=== PATIENT | female | born 1995 | race Hispanic/Latino ===

== ENCOUNTER 2017-06-20 09:17 | Emergency (ER) | payer OTHER ==
[2017-06-20 09:17] VITALS: BMI 38.7
[2017-06-20 09:42] VITALS: TEMP 98.1; O2SAT 97
[2017-06-20 10:19] LABS: URINE BILIRUBIN NEGATIVE (NEGATIVE); URINE BLOOD LARGE (NEGATIVE); URINE GLUCOSE (UA) NEGATIVE (NEGATIVE); URINE KETONE NEGATIVE (NEGATIVE); URINE LEUKOCYTE ESTERASE NEGATIVE Leu/uL (NEGATIVE); URINE PROTEIN TRACE mg/dL (<30 mg/dL); URINE UROBILINOGEN 0.2 E.U./dL (<1 E.U./dL)
[2017-06-20 10:20] LABS: URINE APPEARANCE SL CLOUDY (CLEAR); URINE COLOR YELLOW (YELLOW)
[2017-06-20] MEDS ORDERED: Albuterol-Ipratrop 3 mg / 0.5 (3 ml) UD IH STA ×2 (10:25)
[2017-06-20] MEDS ORDERED: Promethazine/Cod 6.25mg-10mg/5ml Syr UD PO STA (10:26)
[2017-06-20 10:28] LABS: URINE BACTERIA FEW (NEG); URINE EPITHELIAL CELLS 0 - 2 /hpf (0-5); URINE RBC TNTC /hpf (0-2); URINE WBC 0 - 2 /hpf (0-6)
--- NOTE | 2017-06-20 10:28 | ED PDOC ---
Arrival/HPI - General Chief Complaint: Back Pain Time Seen by Provider: 06/20/17 09:53 Historian: Patient - History of Present Illness Narrative History of Present Illness (Text): 06/20/17 22 yo female w/PMHx of asthma come in for evaluation of cold sx for past week associated with nasal congestion, dry cough that gradually worsen for past 3 days. Pt sts, " now feel pain on my side from coughing". Pt admits, using inhaler at home without improvement in cough. Otherwise, pt denies fever, chills , headache, dizziness, drooling, nack pain, CP, dyspnea, palpitation, abd. pain , N/V/D, back pain. Ambulate to ED for evaluation, not in any apparent distress. Past Medical History - Infectious Disease Hx of Infectious Diseases: None - Cardiac Hx Cardiac Disorders: No Other/Comment: ASTHMA. ANEMIA - Pulmonary Hx Respiratory Disorders: Yes Hx Asthma: Yes - Neurological Hx Neurological Disorder: No - HEENT Hx HEENT Disorder: No - Renal Hx Renal Disorder: No - Endocrine/Metabolic Hx Endocrine Disorders: No - Hematological/Oncological Hx Blood Disorders: Yes Hx Anemia: Yes - Integumentary Hx Dermatological Disorder: No - Musculoskeletal/Rheumatological Hx Musculoskeletal Disorders: No - Gastrointestinal Hx Gastrointestinal Disorders: No - Genitourinary/Gynecological Hx Genitourinary Disorders: No - Psychiatric Hx Psychophysiologic Disorder: No Hx Depression: No Hx Emotional Abuse: No Hx Physical Abuse: No Hx Substance Use: No - Past Surgical History Past Surgical History: No Previous - Anesthesia Hx Anesthesia: No Hx Anesthesia Reactions: No Hx Malignant Hyperthermia: No - Suicidal Assessment Feels Threatened In Home Enviroment: No Family/Social History - Physician Review Nursing Documentation Reviewed: Yes Family/Social History: No Known Family HX Smoking Status: Heavy Smoker > 10 Cigarettes Daily Hx Alcohol Use: Yes Hx Substance Use: No Hx Substance Use Treatment: No Allergies/Home Meds Allergies/Adverse Reactions: Allergies No Known Allergies Allergy (Verified 06/20/17 09:39) Home Medications: Home Meds Medication Instructions Recorded Confirmed Albuterol HFA [Ventolin HFA 90 2 puff IH PRN PRN 06/20/17 06/20/17 mcg/actuation (8 g)] Review of Systems - Review of Systems Constitutional: Normal. absent: Fevers Eyes: Normal ENT: Normal, Sinus Congestion Respiratory: Cough, Wheezing Cardiovascular: Normal Gastrointestinal: Normal Genitourinary Female: Normal Musculoskeletal: Normal Skin: Normal Neurological: Normal Endocrine: Normal Hemo/Lymphatic: Normal Psychiatric: Normal Physical Exam Vital Signs Temp Pulse Resp BP Pulse Ox 06/20/17 09:39 98.1 F 85 19 136/75 97 Temperature: Afebrile Blood Pressure: Normal Pulse: Regular Respiratory Rate: Normal Appearance: Positive for: Well-Appearing, Non-Toxic, Comfortable Pain Distress: None Mental Status: Positive for: Alert and Oriented X 3 - Systems Exam Conjunctiva: Present: Normal Ears: Present: NORMAL TM Mouth: Present: Moist Mucous Membranes. No: Drooling Pharnyx: No: ERYTHEMA, EXUDATE, TONSILS ENLARGED Nose (Internal): Present: Edematous Neck: Present: Trachea Midline. No: JVD, Lymphadenopathy, Bruit Respiratory/Chest: Present: Good Air Exchange, Wheezes (scattered Right base). No: Respiratory Distress, Accessory Muscle Use, Decreased Breath Sounds, Rales Cardiovascular: Present: Regular Rate and Rhythm, Normal S1, S2. No: Murmurs Abdomen: Present: Normal Bowel Sounds. No: Tenderness, Distention, Peritoneal Signs, Rebound, Guarding Back: Present: Other (mild tendernes over Right flank area. No deformity, no skin changes.). No: CVA Tenderness Upper Extremity: Present: Normal ROM. No: Deformity Lower Extremity: Present: Normal ROM. No: Edema, CALF TENDERNESS, Swelling, Deformity Neurological: Present: GCS=15, Speech Normal Skin: Present: Warm, Dry, Normal Color. No: Rashes Psychiatric: Present: Alert, Oriented x 3, Normal Insight, Normal Concentration Medical Decision Making ED Course and Treatment: 06/20/17 10:59 On re-evaluation, pt is afebrile, hemodynamicaly stable. Non-toxic. PEAk flow >400 pre and post tx PulseOx 97% RA ENT: no acute findings Neck: Supple, (-) JVD, (-) carotid bruits B/L Lungs: CTA B/L, BS equal B/L. CVS: (+)S1S2, reg. Abd: benign CXR review and appears normal Pt has clinical findings c/w bronchitis, asthma exacerbation. Pt advised on course of ds. ref. to F/u with PMD, Pulm in 2-3 days for re-evaluation. return to ED if any worsening or new changes. - Lab Interpretations Lab Results: Lab Results 06/20/17 10:15: Urine Color Yellow, Urine Appearance Sl cloudy, Urine pH 6.0, Ur Specific [place] 1.025, Urine Protein Trace H, Urine Glucose (UA) Negative, Urine Ketones Negative, Urine Blood Large H, Urine Nitrate Negative, Urine Bilirubin Negative, Urine Urobilinogen 0.2, Ur Leukocyte Esterase Negative, Urine RBC Tntc, Urine WBC 0 - 2, Ur Epithelial Cells 0 - 2, Urine Bacteria Few - RAD Interpretation Radiology Orders: 06/20/17 10:24 CHEST TWO VIEWS (PA/LAT) [RAD] Stat - Medication Orders Current Medication Orders: Discontinued Medications Albuterol/Ipratropium (Duoneb 3 Mg/0.5 Mg (3 Ml) Ud) 3 ml IH STAT STA Stop: 06/20/17 10:26 Last Admin: 06/20/17 10:37 Dose: 3 ml Albuterol/Ipratropium (Duoneb 3 Mg/0.5 Mg (3 Ml) Ud) 3 ml IH STAT STA Stop: 06/20/17 10:26 Azithromycin (Zithromax) 500 mg PO STAT STA PRN Reason: Protocol Stop: 06/20/17 10:27 Last Admin: 06/20/17 10:37 Dose: 500 mg Ibuprofen (Motrin Tab) 600 mg PO STAT STA Stop: 06/20/17 10:34 Last Admin: 06/20/17 10:43 Dose: 600 mg MAR Pain/Vitals Document 06/20/17 10:43 SE (Rec: 06/20/17 10:43 SE [email or web address] Pain Reassessment Is This A Pain ReAssessment? No Sleep Is patient sleeping during reassessment? No Presence of Pain Presence of Pain Yes Pain Scale Used Pain Scale Used Numeric Location Left, Right or Bilateral Right Pain Location Body Site flank Prednisone (Prednisone Tab) 60 mg PO STAT STA Stop: 06/20/17 10:26 Last Admin: 06/20/17 10:37 Dose: 60 mg Promethazine HCl/Codeine (Phenergan/Codeine Oral Syrup) 5 ml PO STAT STA Stop: 06/20/17 10:27 Last Admin: 06/20/17 10:37 Dose: 5 ml Disposition/Present on Arrival - Present on Arrival Any Indicators Present on Arrival: No History of DVT/PE: No History of Uncontrolled Diabetes: No Urinary Catheter: No History of Decub. Ulcer: No History Surgical Site Infection Following: None - Disposition Have Diagnosis and Disposition been Completed?: Yes Diagnosis: Bronchitis, Asthma exacerbation Disposition: HOME/ ROUTINE Disposition Time: 11:21 Patient Plan: Discharge Patient Problems: Current Active Problems Problem Status Onset Bronchitis Acute Asthma exacerbation Acute Condition: STABLE Discharge Instructions (ExitCare): Acute Bronchitis (ED), Asthma (ED) Additional Instructions: ENCOURAGE FLUIDS TAKE MEDICATION PRESCRIBED FOLLOW UP WITH PMD, PULMONOLOGY IN 2-3 DAYS FOR RE-EVALUATION. RETURN TO ED IF ANY WORSENING OR NEW CHANGES. Prescriptions: Albuterol 0.083% [Albuterol 0.083% Inhal [place] (2.5 mg/3 ml) UD] 2.5 mg IH Q6 #50 neb Azithromycin 1 tab PO DAILY #4 tab Prednisone [Deltasone] 40 mg PO DAILY #6 tablet Referrals: [facility] [Outside] - Follow up with primary Forms: [employer] (Bulgarian), WORK NOTE
[2017-06-20 11:43] VITALS: BP 98/59; PULSE 86; RESP 18
--- NOTE | 2017-06-20 13:00 | RAD ---
HISTORY: Cough COMPARISON: No prior. TECHNIQUE: Chest PA and lateral FINDINGS: LUNGS: No active pulmonary disease. PLEURA: No significant pleural effusion identified. No pneumothorax apparent. CARDIOVASCULAR: Normal. OSSEOUS STRUCTURES: No significant abnormalities. VISUALIZED UPPER ABDOMEN: Normal. OTHER FINDINGS: None. IMPRESSION: No active disease.
== END 2017-06-20 11:43 | disposition home or self-care (01) ==
LOC: ED 09:17
DX: J45.901 Unspecified asthma with (acute) exacerbation (principal); F17.210 Nicotine dependence, cigarettes, uncomplicated

== ENCOUNTER 2017-06-21 20:13 | Emergency (ER) | payer OTHER ==
[2017-06-21 20:24] VITALS: BMI 43.2
[2017-06-21 20:33] VITALS: RESP 17
[2017-06-21] MEDS: Albuterol-Ipratrop 3 mg / 0.5 (3 ml) UD IH SCH ×3 (20:57→21:12)
[2017-06-21 21:07] LABS: URINE BILIRUBIN NEGATIVE (NEGATIVE); URINE BLOOD LARGE (NEGATIVE); URINE GLUCOSE (UA) NEGATIVE (NEGATIVE); URINE KETONE NEGATIVE (NEGATIVE); URINE LEUKOCYTE ESTERASE NEGATIVE Leu/uL (NEGATIVE); URINE PROTEIN NEGATIVE mg/dL (<30 mg/dL); URINE UROBILINOGEN 0.2 E.U./dL (<1 E.U./dL)
[2017-06-21 21:08] LABS: BASO # 0.02 K/mm3 (0.0-2.0); BASO % 0.2 % (0.0-3.0); EOS % 0.2 % (1.5-5.0); GRAN # 7.24 (1.4-6.5); GRAN % 79.3 % (50.0-68.0); HEMATOCRIT 38.2 % (36.0-48.0); LYMPH # 1.4 (1.2-3.4); LYMPH % 15.3 % (22.0-35.0); MEAN CELL VOLUME 83.2 fl (80.0-105.0); MEAN CORPUSCULAR HEMOGLOBIN 26.6 pg (25.0-35.0); MEAN CORPUSCULAR HGB CONC 31.9 g/dl (31.0-37.0); MONO # 0.5 (0.1-0.6); RED CELL DISTRIBUTION WIDTH 15.3 % (11.5-14.5); WHITE BLOOD COUNT 9.1 10^3/ul (4.5-11.0)
[2017-06-21 21:14] LABS: URINE APPEARANCE SL CLOUDY (CLEAR); URINE COLOR YELLOW (YELLOW)
[2017-06-21 21:15] LABS: URINE RBC 25 - 30 /hpf (0-2); URINE WBC 0 - 2 /hpf (0-6)
[2017-06-21 21:21] LABS: ALB/GLOB RATIO 1.2 (1.1-1.8); ALKALINE PHOSPHATASE 61 U/L (38-126); ALT/SGPT 66 U/L (7-56); AST/SGOT 40 U/L (14-36); BILIRUBIN,TOTAL 0.3 mg/dL (0.2-1.3); BLOOD UREA NITROGEN 16 mg/dL (7-21); CALCIUM 8.9 mg/dL (8.4-10.5); CARBON DIOXIDE 28 mmol/L (21-33); CHLORIDE 107 mmol/L (98-107); GFR AFRICAN-AMERICAN > 60; GLUCOSE,RANDOM 93 mg/dL (70-110); MAGNESIUM 1.7 mg/dL (1.7-2.2); POTASSIUM 4.1 mmol/L (3.6-5.0); SODIUM 140 mmol/L (132-148)
[2017-06-21 21:25] LABS: TROPONIN I < 0.01 ng/mL
--- NOTE | 2017-06-21 21:59 | ED PDOC ---
Arrival/HPI - General Chief Complaint: Shortness Of Breath Time Seen by Provider: 06/21/17 20:22 Historian: Patient - History of Present Illness Narrative History of Present Illness (Text): 06/21/17 21:59 A 22 year old female, whose past medical history includes asthma, presents to the emergency department complaining of shortness of breath and chest tightness since this afternoon. Patient denies any fever, headache, dizziness or any other complaints at this time. Symptom Onset: Sudden Symptom Course: Unchanged Activities at Onset: Rest Context: Home Past Medical History - Provider Review Nursing Documentation Reviewed: Yes - Infectious Disease Hx of Infectious Diseases: None - Cardiac Hx Cardiac Disorders: No Other/Comment: ASTHMA. ANEMIA - Pulmonary Hx Respiratory Disorders: Yes Hx Asthma: Yes - Neurological Hx Neurological Disorder: No - HEENT Hx HEENT Disorder: No - Renal Hx Renal Disorder: No - Endocrine/Metabolic Hx Endocrine Disorders: No - Hematological/Oncological Hx Blood Disorders: Yes Hx Anemia: Yes - Integumentary Hx Dermatological Disorder: No - Musculoskeletal/Rheumatological Hx Musculoskeletal Disorders: No - Gastrointestinal Hx Gastrointestinal Disorders: No - Genitourinary/Gynecological Hx Genitourinary Disorders: No - Psychiatric Hx Psychophysiologic Disorder: No Hx Depression: No Hx Emotional Abuse: No Hx Physical Abuse: No Hx Substance Use: No - Past Surgical History Past Surgical History: No Previous - Anesthesia Hx Anesthesia: No Hx Anesthesia Reactions: No Hx Malignant Hyperthermia: No - Suicidal Assessment Feels Threatened In Home Enviroment: No Family/Social History - Physician Review Nursing Documentation Reviewed: Yes Family/Social History: No Known Family HX Smoking Status: Heavy Smoker > 10 Cigarettes Daily Hx Alcohol Use: Yes Hx Substance Use: No Hx Substance Use Treatment: No Allergies/Home Meds Allergies/Adverse Reactions: Allergies No Known Allergies Allergy (Verified 06/21/17 20:26) Review of Systems - Physician Review All systems were reviewed & negative as marked: Yes - Review of Systems Constitutional: absent: Fevers Respiratory: SOB Cardiovascular: Other (chest tightness) Neurological: absent: Headache, Dizziness Physical Exam Vital Signs Reviewed: Yes Vital Signs Temp Pulse Resp BP Pulse Ox 06/21/17 22:31 86 17 108/66 96 06/21/17 20:30 98.7 F 85 17 109/45 L 98 Temperature: Afebrile Blood Pressure: Hypotensive Pulse: Regular Respiratory Rate: Normal Appearance: Positive for: Well-Appearing, Non-Toxic, Comfortable Pain Distress: None Mental Status: Positive for: Alert and Oriented X 3 - Systems Exam Head: Present: Atraumatic, Normocephalic Pupils: Present: PERRL Extroacular Muscles: Present: EOMI Conjunctiva: Present: Normal Mouth: Present: Moist Mucous Membranes Neck: Present: Normal Range of Motion Respiratory/Chest: Present: Other (poor air entry b/l). No: Accessory Muscle Use, Wheezes Cardiovascular: Present: Regular Rate and Rhythm, Normal S1, S2. No: Murmurs Abdomen: Present: Normal Bowel Sounds. No: Tenderness, Distention, Peritoneal Signs Back: Present: Normal Inspection Upper Extremity: Present: Normal Inspection. No: Cyanosis, Edema Lower Extremity: Present: Normal Inspection. No: Edema Neurological: Present: GCS=15, CN II-XII Intact, Speech Normal Skin: Present: Warm, Dry, Normal Color. No: Rashes Psychiatric: Present: Alert, Oriented x 3, Normal Insight, Normal Concentration Medical Decision Making ED Course and Treatment: 06/21/17 21:57 Impression: A 22 year old female with shortness of breath and chest tightness. Plan: -- EKG -- CT angio chest -- labs -- Urinalysis -- Duoneb, Solumedrol -- Reassess and disposition Prior Visits: Notes and results from previous visits were reviewed. Patient was last seen in the emergency department on 06/20/17 for evaluation of nasal congestion and dry cough. Progress Notes: EKG: Ordered, reviewed, and independently interpreted the EKG. Rate : 83 BPM Rhythm : NSR Interpretation : normal intervals, normal axis CT Angiography Chest With Intravenous Contrast FINDINGS: Limitations: Motion artifact - mild. Suboptimal timing of bolus. Pulmonary arteries: No definite filling defects within main, lobar branches. Suboptimal evaluation of segmental, subsegmental branches. Aorta: No aneurysm. No dissection. Lungs: Minimal atelectasis/scarring. No consolidation. Pleural space: No significant effusion. No pneumothorax. Heart: No cardiomegaly. No significant pericardial effusion. Bones/joints: No acute fracture. No dislocation. Soft tissues: Unremarkable. Lymph nodes: No pathologically enlarged lymph nodes. IMPRESSION: 1. No definite pulmonary embolism. 2. Incidental/non-acute findings are described above. Dictated and Authenticated by: Juan Albrecht MD 06/22/2017 12:20 AM Eastern Time ([place] & [place]) Re-evaluation Time: 00:27 Reassessment Condition: Re-examined, Improved - Lab Interpretations Lab Results: 06/21/17 20:41 06/21/17 20:41 Lab Results 06/21/17 20:53: Urine Color Yellow, Urine Appearance Sl cloudy, Urine pH 7.0, Ur Specific [place] 1.020, Urine Protein Negative, Urine Glucose (UA) Negative, Urine Ketones Negative, Urine Blood Large H, Urine Nitrate Negative, Urine Bilirubin Negative, Urine Urobilinogen 0.2, Ur Leukocyte Esterase Negative, Urine RBC 25 - 30, Urine WBC 0 - 2, Ur Epithelial Cells 1 - 3 06/21/17 20:41: Sodium 140, Potassium 4.1, Chloride 107, Carbon Dioxide 28, Anion Gap 10, BUN 16, Creatinine 0.7, Est GFR ( Amer) > 60, Est GFR (Non- Af Amer) > 60, Random Glucose 93, Calcium 8.9, Magnesium 1.7, Total Bilirubin 0.3, AST 40 H, ALT 66 H, Alkaline Phosphatase 61, Lactate Dehydrogenase 652, Total Creatine Kinase 489 H, CK-MB (CK-2) 6.5 H, CK-MB (CK-2) % 1.3 L, Troponin I < 0.01, Total Protein 7.0, Albumin 3.8, Globulin 3.2, Albumin/Globulin Ratio 1.2 06/21/17 20:41: D-Dimer, Quantitative 380 H 06/21/17 20:41: WBC 9.1, RBC 4.59, Hgb 12.2, Hct 38.2, MCV 83.2, MCH 26.6, MCHC 31.9, RDW 15.3 H, Plt Count 246, MPV 10.0, Gran % 79.3 H, Lymph % (Auto) 15.3 L , [place] % (Auto) 5.0, Eos % (Auto) 0.2 L, Baso % (Auto) 0.2, Gran # 7.24 H, Lymph # 1.4, [place] # 0.5, Eos # 0.0, Baso # 0.02 I have reviewed the lab results: Yes - RAD Interpretation Radiology Orders: 06/21/17 22:20 ANGIO CHEST PE PROTOCOL [CT] Stat - EKG Interpretation Interpreted by ED Physician: Yes Type: 12 lead EKG - Medication Orders Current Medication Orders: Discontinued Medications Albuterol/Ipratropium (Duoneb 3 Mg/0.5 Mg (3 Ml) Ud) 3 ml IH Q15M ALYSE Stop: 06/21/17 21:16 Last Admin: 06/21/17 21:12 Dose: 3 ml Methylprednisolone (Solu-Medrol) 60 mg IVP ONCE ONE Stop: 06/21/17 20:47 Last Admin: 06/21/17 20:57 Dose: 60 mg IVP Administration Document 06/21/17 20:57 IT (Rec: 06/21/17 20:57 IT [facility] [id number] Charges for Administration # of IVP Administrations 1 - Scribe Statement The provider has reviewed the documentation as recorded by the Jasmyne Sullivan Provider Scribe Attestation: All medical record entries made by the Scribe were at my direction and personally dictated by me. I have reviewed the chart and agree that the record accurately reflects my personal performance of the history, physical exam, medical decision making, and the department course for this patient. I have also personally directed, reviewed, and agree with the discharge instructions and disposition. Disposition/Present on Arrival - Present on Arrival Any Indicators Present on Arrival: No History of DVT/PE: No History of Uncontrolled Diabetes: No Urinary Catheter: No History of Decub. Ulcer: No History Surgical Site Infection Following: None - Disposition Have Diagnosis and Disposition been Completed?: Yes Diagnosis: Bronchitis Disposition: HOME/ ROUTINE Disposition Time: 00:28 Condition: GOOD Discharge Instructions (ExitCare): Acute Bronchitis (ED) Forms: [employer] (N[place]aguan), WORK NOTE
[2017-06-21] MEDS ORDERED: Iohexol 350 MG/100 ML VIAL ONE (22:48)
--- NOTE | 2017-06-22 00:20 | CT ---
EXAM: CT Angiography Chest With Intravenous Contrast CLINICAL HISTORY: 22 years old, female; Abnormal findings; Abnormal diagnostic tests; Elevated d-dimer; Additional info: SOB cp TECHNIQUE: Axial computed tomographic angiography images of the chest with intravenous contrast using pulmonary embolism protocol. All CT scans at this facility use one or more dose reduction techniques, viz.: automated exposure control; ma/kV adjustment per patient size (including targeted exams where dose is matched to indication; i.e. head); or iterative reconstruction technique. MIP reconstructed images were created and reviewed. Coronal and sagittal reformatted images were created and reviewed. CONTRAST: 100 mL of omni 350 administered intravenously. COMPARISON: No relevant prior studies available. FINDINGS: Limitations: Motion artifact - mild. Suboptimal timing of bolus. Pulmonary arteries: No definite filling defects within main, lobar branches. Suboptimal evaluation of segmental, subsegmental branches. Aorta: No aneurysm. No dissection. Lungs: Minimal atelectasis/scarring. No consolidation. Pleural space: No significant effusion. No pneumothorax. Heart: No cardiomegaly. No significant pericardial effusion. Bones/joints: No acute fracture. No dislocation. Soft tissues: Unremarkable. Lymph nodes: No pathologically enlarged lymph nodes. IMPRESSION: 1. No definite pulmonary embolism. 2. Incidental/non-acute findings are described above.
[2017-06-22 00:39] VITALS: BP 110/72; PULSE 89; TEMP 98; O2SAT 98
--- NOTE | 2017-06-22 09:20 | CARD ---
APPROVED REPORT EKG Measurement Heart [id number] <Conclusion> Normal sinus rhythm with sinus arrhythmia Normal ECG
== END 2017-06-22 00:39 | disposition home or self-care (01) ==
LOC: ED 20:13
DX: J20.9 Acute bronchitis, unspecified (principal); F17.210 Nicotine dependence, cigarettes, uncomplicated
CPT/HCPCS: 71275; 80053; 81001; 82550; 82553; 83615; 83735; 84484; 85025; 85378; 93005; 96374; 99284; J2930; Q9967